=== PATIENT | male | born 1975 | race Caucasian/White ===

== ENCOUNTER 2023-01-31 08:14 | Outpatient (CLI) | payer OTHER, SELFPAY ==
--- NOTE | 2023-02-11 17:53 | WPDHOMESLEEP ---
Sleep Study - Home Unattended Date of Study: 01/31/23 Ordering Provider: Micheal Gotti APRN Interpreting Provider: Eli Adhikari, DO Home Sleep Study Type: Watch PAT Height: 1.7 m Weight: 104.326 kg Body Mass Index: 36.0 Neck Circumference (inches): 17 [place]: 7 Reason for Sleep Study Frequent nighttime awakenings Sleep History The patient is a 47-year-old male with hypertension, hypothyroidism and unspecified mood disorder that had a sleep study ordered by the pulmonary group for evaluation of sleep apnea. The patient rarely awakens from sleep short of breath. He rarely awakens at night with heartburn, belching or cough. He constantly snores loudly enough that others complain. He constantly has trouble sleeping when he has a cold. He occasionally wakes up gasping for air throughout the night. He frequently has breathing problems at night observed by himself or others. He frequently sweats excessively at night. He occasionally has heart palpitations or irregular heartbeats during the night. He occasionally falls asleep during the day but never while driving. He denies sleep paralysis and cataplexy. He denies having trouble at school or work due to sleepiness. He rarely experiences vivid dreamlike scenes upon awakening or falling asleep. He denies feeling afraid of going to sleep. He rarely has nightmares. He occasionally remembers his dreams. He rarely has thoughts racing through his mind. He rarely feels sad, depressed or anxious. He frequently has muscular tension. He occasionally notices parts of his body jerk. He occasionally kicks during the night. He occasionally has crawling and aching feelings in his legs but denies having leg pain during the night. He constantly grinds his teeth during sleep and occasionally awakens with morning jaw pain. He is occasionally bothered by pain during the day and frequently awakened by pain during the night. He frequently wakes up feeling stiff in the morning. He occasionally wakes up with sore or achy muscles. He constantly wakes up with pain in the neck, spine or other joints. He goes to bed at 10:00 p.m. on weekdays and 11:00 p.m. on the weekends. He is able to fall asleep in a short amount of time. He wakes up 7-8 times throughout the night to adjust his position and is able to fall back asleep immediately. He wakes up at 5:30 a.m. on weekdays and at 7:00 a.m. on the weekends. He typically gets 5 of sleep per night. He will stay in bed for few minutes after waking up in the morning. He currently lives at home with his and 4 children. He denies consuming any caffeinated beverages within 2 hours of bedtime. He denies engaging in physical exercise before bedtime. He will watch television before falling asleep. He will take naps in afternoon or the evening and they are refreshing. He consumes 1 caffeinated beverage per day. He denies tobacco and alcohol use. He does admit to using CBD-THC gummies 1-2 times per month. [facility] Past Medical History Medical History Body mass index (BMI) greater than 30 (07/30/18) Cervical disc disease Cervical radiculopathy at C8 Essential hypertension Hypothyroidism Libido, decreased Paresthesia and pain of both upper extremities Surgical History Surgical History H/O spinal fusion fusion of c6-c7 History of hand surgery 1 finger on both hands to repair a nerve Family History Family History Grandparent Bipolar disorder Acute myocardial infarction Cerebrovascular accident Heart disease Hypertension Grandparent Rheumatoid arthritis Other Carcinoma of colon Social History Social History Smoking status: Never smoker Second hand tobacco smoke exposure: No Alcohol intake: never
[2023-02-11 18:01] VITALS: BMI 36.0
== END 2023-01-31 13:00 | disposition home or self-care (01) ==
LOC: ANHCSM 08:16
PROVIDERS: PCP Family Medicine; Visit Provider Nurse Practitioner Family
DX: G47.33 Obstructive sleep apnea (adult) (pediatric) (principal); I10 Essential (primary) hypertension; E03.9 Hypothyroidism, unspecified
CPT/HCPCS: 95800